=== PATIENT | female | born 1970 | race American Indian/Alaskan Native ===

== ENCOUNTER 2017-05-15 15:17 | Outpatient (CLI) | payer BC ==
--- NOTE | 2017-05-15 16:02 | XRay Report ---
CHEST TWO VIEWS: 05/15/17 15:17:00 CLINICAL: Shortness of breath. COMPARISON: none FINDINGS: Normal heart and pulmonary vasculature. The lungs are normally expanded and clear. The bones and soft tissues are normal. IMPRESSION: Normal chest.
== END 2017-05-15 15:18 | disposition home or self-care (01) ==
LOC: SPVIMAG 15:17
PROVIDERS: ATTEND Internal Medicine
DX: R06.02 Shortness of breath (principal)
CPT/HCPCS: 71046